=== PATIENT | female | born 1935 | race Caucasian/White ===

== ENCOUNTER → 2018-10-30 | Outpatient (REF) | LOC: ZLAB.WCH 17:20 | DX: Z01.89 Encounter for other specified special examinations (principal) ==

== ENCOUNTER → 2020-11-02 | Outpatient (REF) ==
[~2020-11-02] MED LIST: CEPHALEXIN500 M1 PO; COZAAR 25MG25 MG/TAB PO; DIOVAN160 MG PO; EFFEXOR 3737.5 MG/TA PO; EFFEXOR XR37.5 MG/CA PO; HCTZ 25MG25 MG PO; NORVASC 5MG5 MG/TAB PO; NYSTATIN CREAM15 GM TP; PERCOCET 5/321 UDTAB PO; TRIVITA; [UNRECOGNIZED DRUG - OTHER]; co Q 10
== END ==
LOC: ZLAB.WCH 09:39
DX: Z01.89 Encounter for other specified special examinations (principal)

== ENCOUNTER 2024-02-26 14:21 | Inpatient (IN) | payer MEDICARE ==
[~2024-02-26] VITALS: Ht 154.9 cm; Wt 65.8 kg
[2024-02-26 16:06] VITALS: BP 171/111; PULSE 87; TEMP 98.2
--- NOTE | 2024-02-26 16:23 | NUR ---
Patient arrived to room 308, transported by EMS, with diagnosis of parotitis to left face and jaw. Left face/jaw swollen, red and tender. Ice applied. Dr. Almaraz aware of of patient's arrival. Fall precautions in place.
[2024-02-26] MEDS ORDERED: COZAAR 50MG50 MG/TAB PO (16:53)
[2024-02-26] MEDS ORDERED: B-12 500 MCG PO (16:53)
[2024-02-26] MEDS ORDERED: COLCRYS0.6 MG PO (16:53)
[2024-02-26] MEDS ORDERED: CLARITIN 1010 MG/TAB PO (16:53)
[2024-02-26] MEDS ORDERED: ZOLOFT 100MG100 MG PO (16:54)
[2024-02-26] MEDS ORDERED: TYLENOL 500MG500 MG PO (16:54)
[2024-02-26] MEDS ORDERED: VITAMIN C500 MG PO (16:54)
[2024-02-26] MEDS ORDERED: ULTRAM 50MG TAB50 MG PO (16:54)
[2024-02-26] MEDS ORDERED: PLAVIX 75MG TAB75 MG PO (16:54)
[2024-02-26] MEDS ORDERED: ZOFRAN 4MG T4 MG/TAB PO (16:55)
[2024-02-26] MEDS ORDERED: NS 1,000 ML IV SCH (17:00)
[2024-02-26] MEDS ORDERED: Docusate Sodium 100 MG CAP PO PRN (17:00)
[2024-02-26] MEDS ORDERED: Ondansetron 4 MG/2 ML VIAL IV PRN (17:00)
[2024-02-26] MEDS ORDERED: Acetaminophen 325 MG TAB PO PRN (17:00)
[2024-02-26] MEDS ORDERED: Polyethylene Glycol 3350 17 GM PDS PO PRN (17:00)
[2024-02-26] MEDS ORDERED: traMADol 50 MG TAB PO PRN (18:15)
--- NOTE | 2024-02-26 19:17 | NUR ---
PATIENT RESTING IN BED WITH EYES CLOSED WITH TV ON WITH NO FAMILY PRESENT WITH NO ACUTE DISTRESS NOTED. PATIENT EASILY AROUSED. PATIENT ON ROOM AIR. NS INFUSING INTO LEFT FOREARM WITH NO COMPLICAITONS NOTED. BEDSIDE SHIFT REPORT COMPLETED WITH KHANH AT THIS TIME. PATIENT DENIES ANY NEEDS. BED IN LOW POSITON WITH WHEELS LOCKED WITH RAILS UP X3 AND CALL LIGHT WITHIN REACH. BED ALARM ON.
--- NOTE | 2024-02-26 20:15 | NUR ---
PATIENT RESTING IN BED WATCHING TV WITH NO FAMILY PRESENT WITH NO ACUTE DISTRESS NOTED. PATIENT ON ROOM AIR. NS INFUING INTO LEFT FOREARM WITH NO COMPLICATIONS NOTED. ASSESSMENT AND MEDICATION ADMINISTRATION COMPLETED AT THIS TIME. PATIENT TOLERATED WELL. PATIENT REQUESTED TO USE THE BATHROOM. PATIENT ASSISTED UP OT BSC BY PRIMARY NURSE. ABHISHEK CARE PROVIDED. PATIENT ASSISTED BACK TO BED AND PULLED UP WITH THE ASSISTANCE OF SEVERINO. PATIENT DENIES ANY OTHER NEEDS AT THIS TIME. BED IN LOW POSITION WITH WHEELS LOCKED WITH RAILS UP X3 AND CALL LIGHT WITHIN REACH. BED ALARM ON.
[2024-02-26 23:04] VITALS: BP 160/74; PULSE 73; TEMP 98.1
[2024-02-27] VITALS (11 sets, daily range): BP systolic 130–168; BP diastolic 50–73; PULSE 71–79; TEMP 97.7–98.4
[2024-02-27 07:07] LABS: HEMOGLOBIN 11.4 g/dl (12.5-16.0); MEAN CELL VOLUME 82 fl (80.0-100.0); MEAN CORPUSCULAR HEMOGLOBIN 27 pg (27-31); MEAN CORPUSCULAR HGB CONC 33 g/dl (33.0-37.0); MEAN PLATELET VOLUME 8.4 fl (7.4-10.4); PLATELET COUNT 316 K/mm3 (130-400); RED BLOOD COUNT 4.22 M/mm3 (4.10-5.30); REDCELL DISTRIBUTION WIDTH-CV 14.9 % (11.5-14.5)
[2024-02-27 07:09] LABS: HEMATOCRIT 34.6 % (37.0-47.0)
[2024-02-27 07:49] LABS: CALCIUM 8.4 mg/dL (8.4-10.2); CREATININE, serum 0.73 mg/dL (0.57-1.11)
[2024-02-27 07:55] LABS: POTASSIUM 2.8 mEq/L (3.5-4.5)
--- NOTE | 2024-02-27 08:10 | NUR ---
Pt is A&Ox4, sitting up in bed and ambulates with a x2 assist. Patient reports left sided facial pain, 2/. Pt denies the need for pain medcation at this time. Pt reports mild nausea. Zofran 4mg IV push adminstered. Pt tolerated treatment well. Left forearm IV 22G clean dry intact, infusing NS at 75mL/h. Pt educated to call nurse if any other new issues arise. Patient verbalized understanding. Call marques within reach.
--- NOTE | 2024-02-27 08:30 | NUR ---
Dr. Almaraz notified of critical WBC level. No new orders received.
[2024-02-27 08:53] LABS: BAND 11 % (0-10); BASOPHIL 1 % (0-2); EOSINOPHIL 2 % (0-4); LYMPHOCYTE 3 % (20.0-51.0); METAMYELOCYTE 1 % (0-0)
[2024-02-27 08:54] LABS: HYPOCHROMIA 1+; NEUTROPHILS 77 % (42.0-75.2); PLATELET ESTIMATE NORMAL (NORMAL)
[2024-02-27] MEDS ORDERED: Clopidogrel 75 MG TAB PO SCH (09:00)
[2024-02-27] MEDS ORDERED: Losartan 50 MG TAB PO SCH (09:00)
[2024-02-27] MEDS ORDERED: Loratadine 10 MG TAB PO SCH (09:00)
[2024-02-27] MEDS ORDERED: amLODIPine 5 MG TAB PO SCH (09:00)
[2024-02-27] MEDS ORDERED: Sertraline 100 MG TAB PO SCH (09:00)
--- NOTE | 2024-02-27 09:39 | NUR ---
Critical result reported of potassium level of 2.8. Caity Almaraz MD made aware of critical result. No new orders at this time.
[2024-02-27] MEDS ORDERED: *Potassium Replacement Protocol MC SCH (11:00)
[2024-02-27] MEDS ORDERED: Potassium Bicarbonate/Citrate 20 MEQ Effervescent TAB PO SCH ×2 (11:00→13:45)
--- NOTE | 2024-02-27 11:28 | NUR ---
lumber yard worker met with pt and her [id number], Shwetha to discuss discharge planning. Pt lives at [facility] in [place]. She sees Dr. Ennis for PCP needs and obtains medications from [facility]'s pharmacy with no difficulties. She verifed to have Medicare A/B and [employer] Senior insurance. Pt is needing full assistance with ADLS due to being weaker and is utilizing a wheelchair for DME. She reports that her , Frank has and son, Rajat [phone] is her DPOA/NOK. SW discussed that PT/OT will come assess her to make reccomendations. pt/ot pending Discharge Plan: leo
[2024-02-27] MEDS ORDERED: PEPTO BISM262 MG/15 PO (12:59)
--- NOTE | 2024-02-27 13:02 | NUR ---
Patient was assisted by Yeni, patient's daughter law to the commode. Pt has diarrhea, green loose BM. Pt was on chair, getting IV antibiotics. Pt ok. Removed and cleaned commode. Patient was going to eat her applesause while asked to go to the bathroom again. Assisted to the commode one more time. Pt's nurse at bedside.
[2024-02-27] MEDS ORDERED: CRANBERRY215 MG PO (13:04)
[2024-02-27] MEDS ORDERED: PHARMASSURE ZIN50 MG PO (13:06)
[2024-02-27] MEDS ORDERED: Magnesium Sulfate 4% 50 ML IV ONE (14:15)
--- NOTE | 2024-02-27 14:36 | NUR ---
1400- Magnesium level of 1.[address] Almaraz called and informed of new result. Orders for a one time dose of magnesium 2g IV over 1 hour receieved. RN verbalized understanding.
--- NOTE | 2024-02-27 19:03 | NUR ---
Patient 4 loose stools today. Reports it is normal for her. Notified Dr. Almaraz- order received for stool specimen- contact plus precautions in place.
--- NOTE | 2024-02-27 20:00 | NUR ---
PATIENT RESTING IN BED WITH TV OFF WITH NO FAMILY PRESENT WITH NO ACUTE DISTRESS NOTED. PATIENT ON ROOM AIR. INT TO LEFT FOREARM INTACT WITH NO COMPLICATIONS NOTED. ASSESSMENT AND MEDICATION ADMINISTRATION COMPLETED AT THIS TIME. PATIENT C/O NAUSEA AND ZOFRAN GIVEN. PATIENT TOLERATED WELL. ALL NEEDS MET. BED IN LOW POSITION WITH WHEELS LOCKED WITH RAILS UP X3 AND CALL LIGHT WITHIN REACH. BED ALARM ON.
[2024-02-27 21:25] LABS: CLOSTRIDIUM DIFF A/B NEG
[2024-02-28] VITALS (14 sets, daily range): BP systolic 130–157; BP diastolic 72–80; PULSE 72–83; TEMP 97.3–98.3
--- NOTE | 2024-02-28 02:22 | NUR ---
LAB CALLED PRIMARY NURSE A POSITIVE BLOOD CULTURE OF STAPH AURES. HOSPITALIST HORACIO BAXTER APRN CALLED. NO NEW ORDERS RECIEVED.
[2024-02-28 06:20] LABS: MEAN CELL VOLUME 82 fl (80.0-100.0); MEAN CORPUSCULAR HEMOGLOBIN 27 pg (27-31); MEAN CORPUSCULAR HGB CONC 33 g/dl (33.0-37.0); MEAN PLATELET VOLUME 8.4 fl (7.4-10.4); PLATELET COUNT 320 K/mm3 (130-400); RED BLOOD COUNT 4.47 M/mm3 (4.10-5.30); REDCELL DISTRIBUTION WIDTH-CV 14.7 % (11.5-14.5)
[2024-02-28 06:22] LABS: HEMATOCRIT 36.5 % (37.0-47.0)
[2024-02-28 06:37] LABS: CALCIUM 8.3 mg/dL (8.4-10.2); CREATININE, serum 0.77 mg/dL (0.57-1.11); POTASSIUM 3.2 mEq/L (3.5-4.5)
--- NOTE | 2024-02-28 09:25 | NUR ---
PATIENT RESTING IN BED. ALERT AND ORIENTED. SHIFT ASSESSMENT COMPLETE. LEFT SIDE OF FACE IS STILL EDEMATOUS. STATES SHE HAS SOME PAIN, BUT DOES NOT WANT PAIN MEDICATION AT THIS TIME. PATIENT WANTING TO TAKE A SHOWER TODAY, WILL LET PCT KNOW. TELEMETRY IN PLACE. DENIES FURTHER NEEDS OR CONCERNS AT THIS TIME. CALL LIGHT WITHIN REACH.
[2024-02-28] MEDS ORDERED: *Potassium Replacement Protocol MC SCH (09:30)
[2024-02-28] MEDS ORDERED: Potassium Bicarbonate/Citrate 20 MEQ Effervescent TAB PO SCH (09:30)
[2024-02-28 09:41] LABS: BAND 6 % (0-10); EOSINOPHIL 2 % (0-4); LYMPHOCYTE 10 % (20.0-51.0); NEUTROPHILS 81 % (42.0-75.2); PLATELET ESTIMATE NORMAL (NORMAL)
--- NOTE | 2024-02-28 11:29 | NUR ---
Vancomycin Initial Dosing Pharmacy Note Ordering provider: Caity Almaraz E., MD Indication/duration: PAROTITIS Relevant comorbidities: LABS: WBC 17.4, SCR 0.8, CRCL ~35 Recommendation: VANCOMYCIN 1 G DAILY Loading dose: 1.25 grams Maintenance dose: 1 gram every 24 hours Trough goal: 15 ug/mL
[2024-02-28] MEDS ORDERED: Vancomycin 1.25 GM,Special Dose/Pharmacy Prepared 1.25 GM in NS 250 ML IV ONE (11:30)
[2024-02-28] MEDS ORDERED: Loperamide 2 MG CAP PO PRN (12:30)
[2024-02-28] MEDS ORDERED: amLODIPine 5 MG TAB PO ONE (12:30)
--- NOTE | 2024-02-28 15:23 | NUR ---
BUZZ notes PT/OT reccomend return to [place] with increased services or SNF. BUZZ left a voicemail with pt's [place]- [facility]- Director Corinna to assess what level of care they can provide, in the event pt chooses to return back. BUZZ will discuss with pt tomorrow. Discharge Plan: SNF vs return to [place] with HH
--- NOTE | 2024-02-28 16:02 | NUR ---
computer networker received a call back from Director Corinna at [facility] who reports they are home plus and can meet pt's needs. Corinna reports they had worked to establish pt with [facility] services, but she arrived to the hospital. Corinna requested updates to ensure they can provide the correct medication, if pt discharged tomorrow vs Sunday due to their pharmacy closing early on the weekend. BUZZ spoke with [facility] who reports they have not actively seen pt because they need progress notes. BUZZ advised she will fax this. BUZZ Amaya faxed clinical updates to [facility] and [facility]. BUZZ spoke with son, Rajat who reports pt would rather go to her AL vs a SNF. He was agreeable to continuing with [facility] as previously etablished. Discharge Plan: return to [place] with
--- NOTE | 2024-02-28 21:10 | NUR ---
PATIENT RESTING IN BED WITH TV ON WITH NO FAMILY PRESENT WITH NO ACUTE DISTRESS NOTED. PATIENT ON ROOM AIR. INT TO LEFT FOREARM INTACT WITH NO COMPLICATIONS NOTED. TELEMETRY INTACT. ASSESSMENT AND MEDICATION ADMINISTRATION COMPLETED AT THIS TIME. PATIENT TOLERATED WELL. PATIENT DENIES ANY OTHER NEEDS. BED IN LOW POSITION WITH WHEELS LOCKED WITH RAILS UP X3 AND CALL LIGHT WITHIN REACH. BED ALARM ON.
[2024-02-29] VITALS (11 sets, daily range): BP systolic 120–150; BP diastolic 65–84; PULSE 80–88; TEMP 97.8–98.8
[2024-02-29 07:24] LABS: MEAN CELL VOLUME 83 fl (80.0-100.0); MEAN CORPUSCULAR HEMOGLOBIN 27 pg (27-31); MEAN CORPUSCULAR HGB CONC 32 g/dl (33.0-37.0); MEAN PLATELET VOLUME 8.5 fl (7.4-10.4); PLATELET COUNT 307 K/mm3 (130-400); RED BLOOD COUNT 4.47 M/mm3 (4.10-5.30)
--- NOTE | 2024-02-29 08:15 | NUR ---
Patient is A&Ox4, ambulating x2 assist, sitting up in bed. Patient reports 2/10 left facial pain. Ice pack used intermittently for pain and is refusing any pain medication at this time. Patient has left forearm 22G IV with NS running at 75mL/h. SCDs are in place and skin is intact bilaterally on heels and feet. Patient educated to call nurse if they need to get up and use the restroom. Patient verbalized understanding and call marques within reach.
[2024-02-29 08:34] LABS: BAND 4 % (0-10); EOSINOPHIL 5 % (0-4); LYMPHOCYTE 9 % (20.0-51.0); METAMYELOCYTE 1 % (0-0); NEUTROPHILS 75 % (42.0-75.2); PLATELET ESTIMATE NORMAL (NORMAL)
[2024-02-29 08:45] LABS: CALCIUM 8.1 mg/dL (8.4-10.2); CREATININE, serum 1.13 mg/dL (0.57-1.11)
[2024-02-29] MEDS ORDERED: amLODIPine 10 MG TAB PO SCH (09:00)
[2024-02-29] MEDS ORDERED: NS 1,000 ML IV SCH (09:15)
--- NOTE | 2024-02-29 09:50 | NUR ---
Creatitinine level of 1.13 reported to Caity Almaraz MD. Orders receieved for IVF, NS at 75mL/h. IVF started.
--- NOTE | 2024-02-29 13:07 | NUR ---
line assembly utility worker attended clinical rounding and was informed pt can likely discharge tomorrow on PO Augmentin. BUZZ left a voicemail to AL Director Corinna at [facility] to inform her. BUZZ spoke with [facility] who accepts pt and can start Sunday. BUZZ Amaya faxed updates to both AL and HH agencies. BUZZ spoke with [id number], Shwetha and she was agreeable tp pt discharge likely tomorrow to [place] with Home Health. Discharge Plan: return to [place] with HH
[2024-03-01] VITALS (11 sets, daily range): BP systolic 129–162; BP diastolic 72–77; PULSE 81–104; TEMP 97.5–98.5
[2024-03-01 06:06] LABS: HEMOGLOBIN 11.4 g/dl (12.5-16.0); MEAN CELL VOLUME 84 fl (80.0-100.0); MEAN CORPUSCULAR HEMOGLOBIN 27 pg (27-31); MEAN CORPUSCULAR HGB CONC 32 g/dl (33.0-37.0); MEAN PLATELET VOLUME 8.4 fl (7.4-10.4); PLATELET COUNT 262 K/mm3 (130-400); RED BLOOD COUNT 4.22 M/mm3 (4.10-5.30); REDCELL DISTRIBUTION WIDTH-CV 14.9 % (11.5-14.5)
[2024-03-01 06:11] LABS: HEMATOCRIT 35.3 % (37.0-47.0)
[2024-03-01 06:28] LABS: CALCIUM 7.9 mg/dL (8.4-10.2); CREATININE, serum 1.77 mg/dL (0.57-1.11)
[2024-03-01 06:54] LABS: BAND 9 % (0-10); LYMPHOCYTE 19 % (20.0-51.0); NEUTROPHILS 65 % (42.0-75.2); PLATELET ESTIMATE NORMAL (NORMAL)
[2024-03-01 07:06] LABS: MAGNESIUM 1.7 mg/dL (1.6-2.6)
[2024-03-01] MEDS ORDERED: Magnesium Sulfate 4% 50 ML IV ONE (08:00)
--- NOTE | 2024-03-01 08:37 | NUR ---
Assessment completed. Pt a/o x4. Assist x1 to bathroom. Reports pain 08/04. Ultram administered po. Fall precautions in place.
--- NOTE | 2024-03-01 09:04 | NUR ---
die storage worker met with patient and daughter in law and presented IM. Patient resides at [facility] assisted Living in [place]. Patient and daughter in law review IM and patient signs. Worker provided patient with a copy of the IM. Awaiting physician to determine if patient is discharging today.
--- NOTE | 2024-03-01 15:28 | NUR ---
field worker faxed clinical updates to [facility]. Will fax orders to [facility] once ready.
[2024-03-01 15:56] LABS: CALCIUM 7.9 mg/dL (8.4-10.2); CREATININE, serum 1.91 mg/dL (0.57-1.11); POTASSIUM 3.9 mEq/L (3.5-4.5)
--- NOTE | 2024-03-01 19:30 | NUR ---
Assisted patient up to bathroom this afternoon and patient became weak, c/o knee pain, making it difficult to walk back to the bed from the bathroom. Instructed the adolescent counselor to use BSC in future due to safety concerns. Fall precautions in place. Pt's left face and jaw improved from yesterday but still firm and tender around the left jaw line. Poor appetite. Reports pain to rib but declined need for medication. Daughter in law, MARCELL Tadeo (Rajat's ) called this evening, speaking to this nurse. Shwetha requested that patient not accept any visitors other than family that already knows she is here. Shwetha reports that the patient is Jehovah Witness and has concerns that the "elders" and other yazidi members will come and influence the patient in decisions that have already been made between the patient and her family. Patient listed confidential with admissions and a check with nurses station sign has been placed on patient's door. Charge nurse and Regulatory Assistant notified.
[2024-03-02] VITALS (11 sets, daily range): BP systolic 125–164; BP diastolic 70–80; PULSE 81–89; TEMP 97.7–98.2
[2024-03-02 03:45] LABS: CREATININE, serum 1.99 mg/dL (0.57-1.11); SODIUM 134 mEq/L (136-145)
[2024-03-02 03:46] LABS: CALCIUM 7.6 mg/dL (8.4-10.2); CREATININE, serum 2.03 mg/dL (0.57-1.11); POTASSIUM 3.8 mEq/L (3.5-4.5)
[2024-03-02 06:29] LABS: HEMOGLOBIN 11.9 g/dl (12.5-16.0); MEAN CELL VOLUME 82 fl (80.0-100.0); MEAN CORPUSCULAR HEMOGLOBIN 27 pg (27-31); MEAN CORPUSCULAR HGB CONC 33 g/dl (33.0-37.0); MEAN PLATELET VOLUME 8.7 fl (7.4-10.4); PLATELET COUNT 264 K/mm3 (130-400); RED BLOOD COUNT 4.42 M/mm3 (4.10-5.30); REDCELL DISTRIBUTION WIDTH-CV 14.9 % (11.5-14.5)
[2024-03-02 06:44] LABS: HEMATOCRIT 36.3 % (37.0-47.0)
[2024-03-02 07:54] LABS: BAND 3 % (0-10); EOSINOPHIL 1 % (0-4); LYMPHOCYTE 19 % (20.0-51.0); NEUTROPHILS 72 % (42.0-75.2); PLATELET ESTIMATE NORMAL (NORMAL)
--- NOTE | 2024-03-02 12:43 | NUR ---
SW faxed clinical updates.
--- NOTE | 2024-03-02 16:54 | NUR ---
IV site to MAICO infilltrated- d/c'd with cath tip intact. Restart attempt by Harvey Blanco RN unsuccessful x1. Kyra Amin RN attempt x1 successful- #22g diffusic to LFA. IVF restarted to LFA. Spoke with Dr. Almaraz re: PICC line placement due to poor IV access- Dr. Almaraz would like to wait until the morning to see how the patient's creat result before making that decision. Pt heavy 2 assist to BSC. Poor appetite, only taking small bites of meals. Refuses nutritional supplements. Declines sitting up in chair. Left jaw and face tender but patient declines offer for Tylenol at this time. Daughter in law at bedside until this afternoon. Son Rajat now at bedside. Magnesium replaced. Fall precautions in place.
[2024-03-02 23:22] LABS: URINE APPEARANCE CLEAR (CLEAR/HAZY); URINE BLOOD NEGATIVE (NEGATIVE); URINE COLOR YELLOW (YELLOW); URINE GLUCOSE NEGATIVE (NEGATIVE); URINE KETONE NEGATIVE (NEGATIVE); URINE NITRATE NEGATIVE (NEGATIVE); URINE PROTEIN(semi-quant) NEGATIVE (NEGATIVE); URINE UROBILINOGEN 0.2 E.U/dL (0.2-1.0)
[2024-03-02 23:36] LABS: COLLECTION METHOD CLEAN CATCH
[2024-03-03] VITALS (12 sets, daily range): BP systolic 125–159; BP diastolic 70–78; PULSE 80–88; TEMP 97.9–98.3
--- NOTE | 2024-03-03 06:50 | NUR ---
appears to be sleeping, arouses easily, bedside shift report received from SWAPNIL Navarro
[2024-03-03] MEDS ORDERED: Cefuroxime 250 MG TAB PO SCH (08:00)
--- NOTE | 2024-03-03 08:00 | NUR ---
eating breakfast and started coughin, had phlegm and then had emesis, states before she came in she was having emesis and has had some since here, medicated with zofran 4mg slow IV
--- NOTE | 2024-03-03 09:30 | NUR ---
in bed and appears to be sleeping now, DIL at bedside
--- NOTE | 2024-03-03 10:30 | NUR ---
full assessment completed, see interventions for further info
[2024-03-03 10:40] LABS: HEMOGLOBIN 11.8 g/dl (12.5-16.0); MEAN CELL VOLUME 83 fl (80.0-100.0); MEAN CORPUSCULAR HEMOGLOBIN 27 pg (27-31); MEAN CORPUSCULAR HGB CONC 33 g/dl (33.0-37.0); MEAN PLATELET VOLUME 8.3 fl (7.4-10.4); PLATELET COUNT 227 K/mm3 (130-400); RED BLOOD COUNT 4.36 M/mm3 (4.10-5.30); REDCELL DISTRIBUTION WIDTH-CV 15.2 % (11.5-14.5)
[2024-03-03 11:02] LABS: CALCIUM 7.8 mg/dL (8.4-10.2); CREATININE, serum 1.79 mg/dL (0.57-1.11); POTASSIUM 3.6 mEq/L (3.5-4.5)
--- NOTE | 2024-03-03 12:00 | NUR ---
speech therapy in working with patient while she eats lunch
[2024-03-03 12:48] LABS: BAND 1 % (0-10); BASOPHIL 1 % (0-2); EOSINOPHIL 2 % (0-4); LYMPHOCYTE 14 % (20.0-51.0); NEUTROPHILS 74 % (42.0-75.2); PLATELET ESTIMATE NORMAL (NORMAL)
--- NOTE | 2024-03-03 13:15 | NUR ---
resting in bed and denies needs
--- NOTE | 2024-03-03 13:42 | NUR ---
Horticultural Worker attended clinical rounds with the team then met with patient and her daughter in law, Shwetha at bedside. BUZZ confirmed the discharge plan is to return to [facility] with [facility]. Shwetha stated family will provide transportation at time of discharge. BUZZ faxed clinical updates to both [facility] and [facility].
--- NOTE | 2024-03-03 15:20 | NUR ---
in bed and appears to be sleeping,
--- NOTE | 2024-03-03 18:46 | NUR ---
PATIENT SITTING UP RESTING IN BED WITH TV ON WITH NO FAMILY PRESENT WITH NO ACUTE DISTRESS NOTED. PATIENT ON ROOM AIR. INT TO LEFT FOREARM INTACT WITH NO COMPLICATIONS NOTED. TELEMETRY INTACT. BEDSIDE SHIFT REPORT COMPLETED WITH FERNANDA AT TIHS TIME. PATIENT DENIES ANY NEEDS. BED IN LOW POSITION WITH WHEELS LOCKED WITH RAILS UP X3 AND CALL LIGHT WITHIN REACH. BED ALARM ON.
--- NOTE | 2024-03-03 18:47 | NUR ---
bedside shift report given to SWAPNIL Nichols
--- NOTE | 2024-03-03 21:25 | NUR ---
PATIENT RESTING IN BED LYING ON RIGHT SIDE WITH TV OFF WITH NO FAMILY PRESENT WITH NO ACUTE DISTRESS NOTED. PATIENT ON ROOM AIR. INT TO LEFT FOREARM INTACT WITH NO COMPLICATIONS NOTED. TELEMETRY INTACT. ASSESSMENT AND IV FLUSHED AT THIS TIME. PATIENT TOLERATED WELL. PATIENT DENIES ANY NEEDS AT THIS TIME. BED IN LOW POSITION WITH WHEELS LOCKED WITH RAILS UP X3 AND CALL LIGHT WITHIN REACH. BED ALARM ON.
--- NOTE | 2024-03-03 23:38 | NUR ---
TELEMETRY CALLED TO REPORT PATIENT HEARTRATE IS 130. PRIMARY NURSE IN TO CHECK ON PATIENT. PATIENT UP TO BATHROOM.
[2024-03-04] VITALS: BP_SYST 151
[2024-03-04 03:23] VITALS: BP 152/71; PULSE 85; TEMP 97.6
[2024-03-04 04:00] VITALS: BP_SYST 152
[2024-03-04 06:41] LABS: HEMOGLOBIN 12.3 g/dl (12.5-16.0); MEAN CELL VOLUME 81 fl (80.0-100.0); MEAN CORPUSCULAR HEMOGLOBIN 27 pg (27-31); MEAN CORPUSCULAR HGB CONC 33 g/dl (33.0-37.0); MEAN PLATELET VOLUME 8.6 fl (7.4-10.4); PLATELET COUNT 262 K/mm3 (130-400); RED BLOOD COUNT 4.56 M/mm3 (4.10-5.30)
[2024-03-04 06:52] LABS: CREATININE, serum 1.44 mg/dL (0.57-1.11); POTASSIUM 3.8 mEq/L (3.5-4.5)
[2024-03-04 07:06] LABS: CALCIUM 8.4 mg/dL (8.4-10.2)
[2024-03-04 07:15] LABS: BAND 12 % (0-10); EOSINOPHIL 2 % (0-4); LYMPHOCYTE 23 % (20.0-51.0); NEUTROPHILS 56 % (42.0-75.2); PLATELET ESTIMATE NORMAL (NORMAL)
[2024-03-04] MEDS ORDERED: Potassium Bicarbonate/Citrate 20 MEQ Effervescent TAB PO ONE (07:30)
[2024-03-04 07:31] VITALS: BP 148/76; PULSE 83; TEMP 97.9
[2024-03-04] MEDS ORDERED: CEFTIN500 MG PO (08:28)
[2024-03-04] MEDS ORDERED: NORVASC 10MG10 MG PO (08:29)
[2024-03-04 10:25] VITALS: BP_SYST 148
--- NOTE | 2024-03-04 11:36 | NUR ---
Nba Player attended clinical rounds with the team and patient is ready for discharge today. SW met with patient to present and review IM form. Patient verbalized understanding and provided signature. SW placed form in chart and provided copy to patient. SW contacted patient's daughter in law, Shwetha who stated she would head this way to transport patient back to [facility]. SW contacted [facility] and faxed discharge orders. SW also contacted [facility] and faxed discharge orders. Discharge Plan; [facility] with [facility]
--- NOTE | 2024-03-04 11:40 | NUR ---
Discharge instructions reviewed with patient, patient's Son (DPOA) and daughter in law, Shwetha- all verbalize understanding. INT to LFA d/c'd with cath tip intact. Tele d/c'd. Pt escorted to private vehicle and discharged to [facility] with family.
== END 2024-03-04 12:00 | disposition home or self-care (01) | DRG 155 ==
LOC: MEDICAL 14:21
PROVIDERS: Internal Medicine Nephrology; ADMIT Hospitalist
DX: K11.8 Other diseases of salivary glands (principal); N10 Acute pyelonephritis; N17.9 Acute kidney failure, unspecified; R78.81 Bacteremia; J45.909 Unspecified asthma, uncomplicated; M18.0 Bilateral primary osteoarthritis of first carpometacarpal joints; Z66 Do not resuscitate; I10 Essential (primary) hypertension; E83.42 Hypomagnesemia; B95.61 Methicillin susceptible Staphylococcus aureus infection as the cause of diseases classified elsewhere; E78.5 Hyperlipidemia, unspecified; R73.03 Prediabetes; E87.6 Hypokalemia; I25.10 Atherosclerotic heart disease of native coronary artery without angina pectoris; F31.9 Bipolar disorder, unspecified; R19.7 Diarrhea, unspecified; Z53.1 Procedure and treatment not carried out because of patient's decision for reasons of belief and group pressure; Z86.73 Personal history of transient ischemic attack (TIA), and cerebral infarction without residual deficits; Z85.828 Personal history of other malignant neoplasm of skin; Z90.89 Acquired absence of other organs; Z90.710 Acquired absence of both cervix and uterus; Z79.899 Other long term (current) drug therapy; Z88.1 Allergy status to other antibiotic agents
CPT/HCPCS: J0295; J2405; J3370; J3475; J7030; J7050; Q3014